=== PATIENT | female | born 1980 | race Caucasian/White ===

== ENCOUNTER 2019-06-25 19:20 | Inpatient (IN) | payer BC ==
[2019-06-25] MEDS ORDERED: Buffered Lidocaine 1% SYRIN* 1 ML/SYRINGE INTRADERM ONE (20:12)
[2019-06-25] MEDS ORDERED: Lactated Ringers 1000 ML Bag* 1,000 ML IV ONE (20:12)
--- NOTE | 2019-06-25 20:30 | HP ---
General Information - Reason for Visit Contractions for several hours, increasing in intensity - General Information Maternal Age: 38 Grav: 4 Para: 1 SAB: 2 IEA: 0 Estimated Due Date: 06/22/19 Determined By: LMP Maternal Blood Type and Rh: AB Positive - Results this Serology/RPR Result: Non-Reactive Rubella Result: Immune HBsAg Result: Negative HIV Result: Negative Past Medical History Delivery History: Hx Uncomplicated Vaginal Delivery Delivery History Comment: SVB @ home 04/2015 Pertinent Past Medical History: See Records Past Medical History Comment: Hx SVT, has monitor, clears with valsalva PP anxiety hx Anemia during ; resolved with supplementation Pertinent Past Surgical History: See Records Past Surgical History Comment: [place] teeth extraction Pertinent Family History: See Records Family History Comment: Mother: SVT DM type 2 RA and OA Fibroids hypothyroidism Father: HTN, hypercholesteremia Sister: PCOS Liver cancer heart dz lung cancer - Antepartal Records Antepartal Records: Reviewed, Complicated by: - Anemia, SI joint/back pain Review of Systems Constitutional: Uncomfortable CV Complaint: No Respiratory: Shortness of Breath: No Gastrointestinal: Normal Bowel Movement, Nausea Genitourinary: No Dysuria, No Bleeding, No Leaking Fluid Musculoskeletal: Back Pain, Contractions Neurological: No Headache, No Visual Changes Movement: Normal Exam Allergies/Adverse Reactions: Allergies bee venom protein (honey bee) Allergy (Verified 05/24/19 14:39) Unknown Reaction Details BP 126/80 T 98.8 HR 76 RR 20 O2 98 - Measurements Height: 5 ft 5 in Weight: 166 lb Body Mass Index (BMI): 27.6 Pre- Weight: 135 lb - Exam Breast: Breast Exam Deferred CVA: No CVA Tenderness Extremities: No Edema Heart: Normal Rhythm/Heart Sounds HEENT: No Significant Findings Lungs: Clear Bilaterally Rectal: Rectal Exam Deferred Reflexes: DTR 2+, - - no clonus Thyroid: - - WNL @ entry to care - Abdominal Exam Abdomen Exam: Non-Tender, Fundal Height Consistent with Dates - Ultrasound/Biophysical Profile Ultrasound Status: Not Done Targeted Exam Findings Estimated Weight: Vaginal and abdominal exam declined EFM Findings - External Monitor Findings Baseline Heart Rate: 140 External Monitor Findings: Accelerations Present, No Pattern of Variable or Late Decelerations, Variability Moderate Contractions: Moderate, Strong, 45-90 Seconds Contraction Frequency: Q 1-4 min Assessment/Plan - Assessment IUP @ 40+3 weeks gestation in active labor. Declining VE for now, will consider with a shift in labor. No evidence acidemia. Intact membranes. - Plan Plan: Admit - Anticipate Vaginal Delivery Plan Comment: Admit, will consider exam going forward. Patient may want to get in tub. Anticipate SVB. - Date/Time of Admission Date of Admission: 06/25/19 Time of Admission: 19:28
[2019-06-25] MEDS ORDERED: Lactated Ringers 1000 ML Bag* 1,000 ML IV SCH (21:00)
[2019-06-25] MEDS ORDERED: OXYTOCIN* 10 UNITS/ML 1 ML VIAL IM ONE (21:50)
[2019-06-25] MEDS ORDERED: Glycerin ADULT SUPP PR PRN (22:13)
[2019-06-25] MEDS: Witch Hazel PAD* JAR TOPICAL PRN (22:30)
[2019-06-25] MEDS: Dibucaine 1% 28.35 GM TUBE PR PRN (22:30)
[2019-06-25] MEDS: Ibuprofen TAB* 600 MG PO PRN (22:30)
[2019-06-25] MEDS ORDERED: Ammonia Inhalant* 1 EA AMP ONE (22:39)
--- NOTE | 2019-06-25 22:59 | PROCNOTE ---
[facility] OB: Delivery Note - Delivery A Date of : 06/25/19 Time of : 21:34 [place] Sex: Male Weight at : 8 lb 8 oz Score 1 Minute: 9 Score 5 Minutes: 9 Gestational Age in Weeks and Days at Delivery: 40 Weeks and 3 Days Delivery Method: Spontaneous Vaginal Labor: Spontaneous Amniotic Fluid: Meconium Anesthesia/Analgesia: None Delivered By: Leah Machado - Nursery Level of Nursery: Regular/Bedside - Perineum Perineal Injury: 1st Degree Perineal Injury Comment: Repaired with 3-0 velosorb under 1% lidocaine Perineal Repair: By Delivering Practioner - Events Delivery Events of Note: Pitocin Only After Delivery - Additional Delivery Notes Additional Delivery Notes: Patient admitted in active labor with rapid progression to complete. Urge to push, bag of water broke with first push. Length of active labor 5'45", pushed 18 min. Patient in hands and knees on bed, baby born OA with rotation to ROSANNA, delivered with strong maternal push. Nuchal anterior hand noted at delivery. Baby with spontaneous respirations, delivered through mother's legs by father, then she turned over with baby to abdomen. Heart rate >110. Cord doubly clamped and cut by FOB once pulsations ceased. Placenta delivered with gentle cord traction at 2145. Fundus initially firm but slight trickle noted and IM pitocin given with good results. Repair as above. Baby at breast to initiate .
[2019-06-26] MEDS ORDERED: OXYTOCIN* 10 UNITS/ML 1 ML VIAL ONE (00:04)
[2019-06-26] MEDS ORDERED: Lidocaine 1% INJ* 10 MG/ML 30 ML SDV ONE (00:04)
[2019-06-26 00:45] LABS: Urine Benzodiazepine Screen None Detected (None Detect); Urine Opiates Screen None Detected (None Detect)
[2019-06-26] MEDS: Dibucaine 1% 28.35 GM TUBE PR PRN (01:59)
[2019-06-26] MEDS: Acetaminophen TAB* 325 MG PO PRN ×4 (01:59→19:51)
[2019-06-26] MEDS: Ibuprofen TAB* 600 MG PO PRN ×3 (05:20→18:14)
[2019-06-26 06:42] LABS: ABS Basophils 0.1 10^3/ul (0-0.2); ABS Lymphocytes 2.5 10^3/ul (1.0-4.8); ABS Monocytes 1.1 10^3/ul (0-0.8); ABS Neutrophils 13.3 10^3/ul (1.5-7.7); Eosinophil % 0.2 %; Hematocrit 33 % (35-47); Hemoglobin 11.4 g/dL (12.0-16.0); Lymphocyte % 14.5 %; Mean Corpuscular HGB Conc 35 g/dL (31-36); Mean Corpuscular Hemoglobin 30 pg (27-31); Mean Corpuscular Volume 85 fL (80-97); Mean Platelet Volume 8.5 fL (7.4-10.4); Platelet Count 145 10^3/uL (150-450); Red Blood Count 3.87 10^6 /uL (3.70-4.87); Red Cell Distribution Width 19 % (10-15); White Blood Count 16.9 10^3/uL (3.5-10.8)
[2019-06-26] MEDS: Docusate CAP* 100 MG PO SCH ×3 (08:52→19:51)
[2019-06-26] MEDS ORDERED: Ferrous Gluconate TAB* 324 MG TAB PO SCH (09:00)
[2019-06-26] MEDS: Witch Hazel PAD* JAR TOPICAL PRN (15:19)
[2019-06-27] MEDS: Acetaminophen TAB* 325 MG PO PRN ×3 (01:07→14:03)
[2019-06-27] MEDS: Ibuprofen TAB* 600 MG PO PRN ×2 (05:37→11:19)
[2019-06-27] MEDS: Docusate CAP* 100 MG PO SCH ×2 (09:04→14:03)
[2019-06-27 09:17] VITALS: BP 99/50
== END 2019-06-27 14:07 | disposition home or self-care (01) | DRG 560 ==
LOC: MCHOBOUT 19:20 → MCHOB 19:28
PROVIDERS: ADMIT Midwife; ATTEND Midwife
PROC: 10E0XZZ Delivery of Products of Conception, External Approach (ICD-10-PCS; principal; 2019-06-25)
PROC: 4A1HXCZ Monitoring of Products of Conception, Cardiac Rate, External Approach (ICD-10-PCS; 2019-06-25)
PROC: 0HQ9XZZ Repair Perineum Skin, External Approach (ICD-10-PCS; 2019-06-25)
DX: O48.0 Post-term pregnancy (principal); Z37.0 Single live birth; Z3A.40 40 weeks gestation of pregnancy; O70.0 First degree perineal laceration during delivery; O32.8XX0 Maternal care for other malpresentation of fetus, not applicable or unspecified; O77.0 Labor and delivery complicated by meconium in amniotic fluid; Z91.030 Bee allergy status
CPT/HCPCS: 36415; 80307; 85025; A9270-GY; G0480; J2590